=== PATIENT | male | born 1990 | race African-American/Black ===

== ENCOUNTER 2020-12-29 20:10 | Emergency (ER) | payer SELFPAY ==
[~2020-12-29] VITALS: Ht 190.5 cm; Wt 127.0 kg
[2020-12-29 21:35] LABS: BASOPHILS % 0.9 % (0.0-2.0); EOSINOPHILS % 2.3 % (0.0-5.0); HEMATOCRIT. 41.2 % (42.0-52.0); LYMPHOCYTES % 51.8 % (20.0-50.0); MEAN CORPUSCULAR HEMOGLOBIN 31.3 pg (28.0-32.0); MEAN PLATELET VOLUME 8.9 fl (7.4-10.4); PLATELET 143 x1000/uL (130-400); RED BLOOD CELL COUNT 4.48 mill/uL (4.7-6.1); RED CELL DISTRIBUTION WIDTH 12.4 % (11.6-14.6)
[2020-12-29 21:39] LABS: CHLORIDE 111 mEq/L (98-107)
[2020-12-29] MEDS ORDERED: LORA-250 MT ×2 (22:12→22:33)
[2020-12-29 22:30] VITALS: BP 121/81
== END 2020-12-29 22:30 | disposition home or self-care (01) ==
LOC: ER 20:10
DX: F41.0 Panic disorder [episodic paroxysmal anxiety] (principal); R55 Syncope and collapse
CPT/HCPCS: 36415; 71045; 80053; 83880; 84484; 85025; 93005; 99285